=== PATIENT | male | born 1990 | race Caucasian/White ===

== ENCOUNTER 2019-04-20 05:33 | Day surgery (SDC) | payer OTHER ==
[2019-04-19 14:19] VITALS: BMI 24.7
[~2019-04-20] VITALS: Ht 177.8 cm; Wt 76.9 kg
[2019-04-20] VITALS (11 sets, daily range): BP systolic 112–168; BP diastolic 59–71; PULSE 68–118; RESP 15–20; Ht 177.8 cm; Wt 76.9 kg
[2019-04-20] MEDS ORDERED: SOD CHLORIDE 0.9% 1,000 ML IV SCH (06:00)
[2019-04-20] MEDS ORDERED: CEFAZOLIN 2 GM/50 ML (PMX) 50 ML IVPB SCH (06:00)
--- NOTE | 2019-04-20 07:10 | PREAC ---
Date/Time of Note Date/Time of Note DATE: 04/20/19 TIME: 07:09 Anesthesia Eval and Record Evaluation Time Pre-Procedure Interview DATE: 04/20/19 TIME: 07:09 Age 29 Sex male NPO: 8 hrs Preoperative diagnosis Intergluteal subcutaneous mass Planned procedure Excision of mass Past Medical History Past Medical History: None Surgery & Anesthesia Issues No known issue Meds Anticoagulation: No Beta Libertad within 24 hr: No Reason Beta Libertad not given: Pt. not on B-Libertad No Active Prescriptions or Reported Meds Current Medications Sodium Chloride 1,000 ml @ 75 mls/hr [id number] IV Last administered on 04/20/19at 06:28; Admin Dose 75 MLS/HR; Start 04/20/19 at 06:00; Stop 04/20/19 at 17:00 Cefazolin Sodium/ Dextrose 50 ml @ 100 mls/hr PREOP IVPB ; Start 04/20/19 at 06:00; Stop 04/20/19 at 17:00 Meds reviewed: Yes Allergies Coded Allergies: No Known Allergy (Unverified , 04/20/19) Allergies Reviewed: Yes Labs/Studies Labs Reviewed: Reviewed by anesthesiologist test: N/A Pre-procedure Exam Last vitals Vital Signs Date Temp Pulse Resp B/P (MAP) Pulse Ox O2 O2 Flow FiO2 Time Delivery Rate 04/20/19 97.6 68 18 112/62 99 Room Air 06:42 (79) Airway: Adequate mouth opening Mallampati: Mallampati I Teeth: Normal Lung: Normal Heart: Normal ASA Physical Status ASA physical status: 1 Emergency: None Planned Anesthetic General/MAC: LMA, MAC Planned Pain Management Parenteral pain med Pre-operative Attestations Prior to commencing anesthesia and surgery, the patient was re-evaluated, there was verification of: *The patient's identity *The results of appropriate recent lab work and preoperative vital signs *The above evaluation not changing prior to induction *Anesthetic plan, risk benefits, alternative and complications discussed with patient/family; questions answered; patient/family understands, accepts and wishes to proceed. MICKIE AGRAWAL MD April 20, 2019 07:09
--- NOTE | 2019-04-20 07:57 | HPN ---
Date/Time of Note Date/Time of Note DATE: 04/20/19 TIME: 07:57 Interval H&P Admission Note Pt. seen H&P reviewed: No system changes JOEY DUMONT MD April 20, 2019 07:57
[2019-04-20] MEDS ORDERED: PROPOFOL 20 ML ONE (08:08)
[2019-04-20] MEDS ORDERED: MEPERIDINE 100 MG INJ ONE (08:08)
[2019-04-20] MEDS ORDERED: SUCCINYLCHOLINE CHLORIDE 100 MG/5 ML SYG IV ONE (08:08)
[2019-04-20] MEDS ORDERED: ROCURONIUM 50 MG INJ ONE (08:08)
[2019-04-20] MEDS ORDERED: GLYCOPYRROLATE 0.4 MG INJ ONE ×2 (08:08→08:56)
[2019-04-20] MEDS ORDERED: LIDOCAINE 2% (SDV) 5 ML INJ ONE (08:08)
[2019-04-20] MEDS ORDERED: NEOSTIGMINE 3 MG/3 ML SYRINGE ONE ×2 (08:08→08:56)
[2019-04-20] MEDS ORDERED: LIDOCAINE 1%/EPI (1:100,000) (MDV) 20 ML ONE (08:18)
[2019-04-20] MEDS ORDERED: BUPIVACAINE 0.25%/EPI (SDV) 30 ML INJ ONE (08:18)
[2019-04-20] MEDS ORDERED: BUPIVACAINE 0.25% (STERILE-PAK) 30 ML INJ INJ ONE (08:30)
[2019-04-20] MEDS ORDERED: LIDOCAINE 1% (MDV) 20 ML INJ INJ ONE (08:30)
--- NOTE | 2019-04-20 09:28 | SIPON ---
Date/Time of Note Date/Time of Note DATE: 04/20/19 TIME: 09:24 Operative Report Preoperative Diagnosis Subcutaneous mass left lower close to the midline. Postoperative Diagnosis subcutaneous and cutaneous mass appearing like infected tissues all the skin and subcutaneous area to the lateral of the midline on left lower back. Pending pathology report. Operation/Procedure Performed Excision of the mass with good clear margin. Primary closure in 2 layer. Surgeon see signature line trust administrative assistant None Anesthesia: general Estimated blood loss: none Transfusion Required none Specimen Specimen consists of an elliptical tissue consisting of the skin and soft tissue encompassing abnormal infected-looking tissues. Grafts/Implants none Complications none JOEY DUMONT MD April 20, 2019 09:28
[2019-04-20] MEDS ORDERED: EPHEDrine 25 MG/5 ML SYG IV PRN (10:00)
[2019-04-20] MEDS ORDERED: FENTAnyl 50 MCG/ML VIAL IV PRN ×3 (10:00)
[2019-04-20] MEDS ORDERED: hydrALAzine 20 MG INJ IV PRN (10:00)
[2019-04-20] MEDS ORDERED: MEPERIDINE 25 MG INJ IV PRN (10:00)
[2019-04-20] MEDS ORDERED: DIPHENHYDRAMINE 50 MG INJ IV PRN (10:00)
[2019-04-20] MEDS ORDERED: LABETALOL HCL 20MG INJ IV PRN (10:00)
[2019-04-20] MEDS ORDERED: MIDAZOLAM 1 MG/ML 2 ML INJ IV PRN (10:00)
[2019-04-20] MEDS ORDERED: OXYCODONE/ACETAMINOPHEN (5/325) TAB PO PRN ×2 (10:00)
[2019-04-20] MEDS ORDERED: HYDROmorphONE 1 MG/5 ML IV SYRINGE IV PRN ×3 (10:00)
[2019-04-20] MEDS ORDERED: ONDANSETRON 4 MG INJ IV PRN (10:00)
[2019-04-20] MEDS ORDERED: METOCLOPRAMIDE 10 MG INJ IV PRN (10:00)
--- NOTE | 2019-04-20 10:34 | PAC ---
Date/Time of Note Date/Time of Note DATE: 04/20/19 TIME: 10:34 Post-Anesthesia Notes Post-Anesthesia Note Last documented vital signs Vital Signs Date Temp Pulse Resp B/P (MAP) Pulse Ox O2 O2 Flow FiO2 Time Delivery Rate 04/20/19 94 19 119/71 100 Room Air 10:00 (87) 04/20/19 98.0 09:34 Activity: WNL Respiratory function: WNL Cardiovascular function: WNL Mental status: Baseline Pain reasonably controlled: Yes Hydration appropriate: Yes Nausea/Vomiting absent: Yes Comments BT: 98.6 MICKIE AGRAWAL MD April 20, 2019 10:34
--- NOTE | 2019-04-20 13:58 | OPR ---
DATE OF OPERATION: 04/20/2019 PREOPERATIVE DIAGNOSIS: Subcutaneous mass, left lower back slightly off the midline. POSTOPERATIVE DIAGNOSIS: Subcutaneous mass extending to the surface of the skin appearing like infected tissues, pending pathology report. PROCEDURE: Wide excision of the abnormal tissues including skin and subcutaneous tissues and mass SURGEON: Orlando Liang MD INVESTMENT SALES ASSISTANT: None. ANESTHESIA: General and local. ANESTHESIOLOGIST: Kristofer Angel MD ESTIMATED BLOOD LOSS: Nil. SPECIMEN: yes, sent for pathologic evaluation INDICATION: This is a 29-year-old gentleman who presented to the clinic today which complaining of presence of lump - nodule in the lower back for the past 4 to 5 months. There has not been any drainage from there, but when the patient lies down, it has seen. On examination, it appeared that there was density and firmness of the skin and subcutaneous tissue possibly lump in the left lower back at the level of the sacrococcygeal area off the midline. I discussed with the patient that I am not sure of the nature of this pathology and did not appear to be pilonidal because there was sinus opening tract, but in any case, the patient wanted it removed and we agreed that we are going to excise it. It was also discussed with the patient that there is a possibility of recurrence after the operation and also possibility of infection. The patient understood and signed the consent. PROCEDURE IN DETAILS: The patient was taken from holding area to the operating room, was intubated and general anesthesia was induced. Then, position of the patient was changed to prone position. All the pressured areas were padded and cardiopulmonary monitoring was performed after the patient was quite stable on the operating table. The area of the operation was shaved, then tapes were placed on the buttock area and was pulled laterally and fixed to the operating table; therefore, the area of operation was exposed. Prep and drape was done with Betadine in sterile fashion. Time-out was called. The patient was identified. Type of operation and site of operation were discussed. All through the operation, a mixture of 30 mL of 0.25% Marcaine with epinephrine plus 20 mL of 1% lidocaine with epinephrine was used for local anesthesia. Once more on the operating room bright light it was inspected, there was no evidence of pit, no evidence of sinus tract, but the lump appears to be adherent to the skin and there was some skin disruption in that area, so this could have been a pilonidal cyst. In any case, decision has been made before. Decision was again made to excise it completely with a margin of healthy tissue elliptical incision was made about 3 cm obliquely as the bulge was located and carried down through subcutaneous tissue and then completely excised using electrocautery. The wound was thoroughly irrigated with normal saline solution. Hemostasis was achieved. Closure of the wound was performed in 2 layers, deep layer with 2-0 Vicryl. Of course, it should be mentioned that to be able to close it without tension, I had to develop advancement flap about 2 cm on each side of the inferior and superior part of the incision and also lateral and medial part of incision and then subcutaneous tissue was approximated with 2-0 Vicryl and the skin was closed with 2-0 nylon vertical mattress sutures applied. At the end, dry dressing was applied. The patient tolerated procedure well. Sponge and instrument count was reported x2. Estimated blood loss was nil. The specimen was sent for pathology on admission. The patient was transferred to the stretcher in supine position placed and then extubated and transferred to recovery room. Dictated By: ORLANDO SANTO/DARYA Conf#: [id number] DID#: [id number] FESTUS
== END 2019-04-20 10:55 | disposition home or self-care (01) ==
LOC: SDS 05:33
DX: L05.91 Pilonidal cyst without abscess (principal)
CPT/HCPCS: 14000; 80053; 85025; 85610; 85730; J2175; J2710; 88307